=== PATIENT | female | born 1940 | race Caucasian/White ===

== ENCOUNTER 2017-04-19 09:49 | Outpatient (CLI) | payer MEDICARE, OTHER ==
[2017-04-15 16:03] LABS: ALBUMIN 3.8 G/DL (3.4-5.0); ANION GAP 14 (8-16); BLOOD UREA NITROGEN 17 MG/DL (7-18); BUN/CREATININE RATIO 28.3 (6.6-38.0); CALCIUM 9.5 MG/DL (8.5-10.1); CHLORIDE 98 MMOL/L (99-107); GLUCOSE 86 MG/DL (70-104); POTASSIUM 4.5 MMOL/L (3.5-5.1); SODIUM 137 MMOL/L (135-145); TOTAL CARBON DIOXIDE 25.3 MMOL/L (24-32); eGFR > 90 ML/MIN
== END 2017-04-19 23:59 | disposition home or self-care (01) ==
LOC: RAD 09:49
PROVIDERS: ATTEND Orthopaedic Surgery
DX: M67.442 Ganglion, left hand (principal); M25.442 Effusion, left hand; M25.842 Other specified joint disorders, left hand
CPT/HCPCS: 36415; 73720; 80048

== ENCOUNTER 2019-02-12 04:13 | Outpatient (CLI) | payer SELFPAY | END 2019-02-12 23:59 | disposition home or self-care (01) | LOC: HW VAS 04:13 | DX: Z13.6 Encounter for screening for cardiovascular disorders (principal) ==

== ENCOUNTER 2019-05-10 00:52 | Outpatient (CLI) | payer MEDICARE | END 2019-05-10 23:59 | disposition home or self-care (01) | LOC: DIABETIC 00:52 | PROVIDERS: ATTEND Family Medicine | DX: E11.9 Type 2 diabetes mellitus without complications (principal) | CPT/HCPCS: G0108 ==

== ENCOUNTER 2023-07-25 08:27 | Outpatient (CLI) | payer SELFPAY | END 2023-07-25 23:59 | disposition home or self-care (01) | LOC: VAS 08:27 | PROVIDERS: ATTEND Internal Medicine Cardiovascular Disease | DX: Z13.6 Encounter for screening for cardiovascular disorders (principal) ==